=== PATIENT | female | born 1960 | race African-American/Black ===

== ENCOUNTER 2023-09-26 16:25 | Inpatient (IN) | payer OTHER, BC, MEDICAID ==
[~2023-09-26] VITALS: Ht 162.6 cm; Wt 90.7 kg
[2023-09-26 17:35] LABS: BASOPHILS % 0.7 % (0.0-2.0); EOSINOPHILS % 1.4 % (0.0-5.0); HEMATOCRIT. 38.2 % (36.0-48.0); HEMOGLOBIN. 12.8 g/dL (12.0-16.0); LYMPHOCYTES % 50.2 % (20.0-50.0); MEAN CORPUSCULAR HEMOGLOBIN 31.3 pg (28.0-32.0); MEAN CORPUSCULAR HGB CONC 33.4 g/dL (31.0-37.0); MEAN CORPUSCULAR VOLUME 93.8 fL (81.0-99.0); MEAN PLATELET VOLUME 8.6 fl (7.4-10.4); MONOCYTES % 6.8 % (2.0-8.0); NEUTROPHILS % 40.9 % (40.0-76.0); PLATELET 278 x1000/uL (130-400); RED BLOOD CELL COUNT 4.07 mill/uL (4.2-5.4); RED CELL DISTRIBUTION WIDTH 14.8 % (11.6-14.6); WHITE BLOOD COUNT 8.8 x1000/uL (4.5-11.0)
[2023-09-26 17:54] LABS: ALANINE AMINOTRANSFERASE 15 IU/L (10-49); ALBUMIN 4.8 g/dL (3.2-4.8); ASPARTATE AMINOTRANSFERASE 21 IU/L (<34); BILIRUBIN TOTAL 0.3 mg/dL (0.1-1.0); CALCIUM 9.5 mg/dL (8.7-10.4); CARBON DIOXIDE 23 mEq/L (21-32); CHLORIDE 106 mEq/L (98-107); CREATININE 1.2 mg/dL (0.6-1.0); GLUCOSE 110 mg/dL (70-105); POTASSIUM 3.3 mEq/L (3.5-5.1); PROTEIN TOTAL 7.9 g/dL (6.0-8.3); SODIUM 138 mEq/L (136-145); UREA NITROGEN BLOOD 12 mg/dL (9-23)
[2023-09-26 17:55] LABS: PROTHROMBIN TIME 10.7 sec (9.6-11.0)
[2023-09-26 18:00] LABS: TROPONIN I HIGH SENSITIVITY < 4 ng/L (3.0-34)
[2023-09-26 19:31] LABS: CLARITY URINE CLEAR (CLEAR); COLOR URINE YELLOW (YELLOW); GLUCOSE URINE NEGATIVE (NEGATIVE); KETONES URINE TRACE (NEGATIVE); LEUKOCYTE ESTERASE URINE NEGATIVE (NEGATIVE); NITRITE URINE NEGATIVE (NEGATIVE); OCCULT BLOOD URINE NEGATIVE (NEGATIVE); PROTEIN URINE NEGATIVE (NEGATIVE); SPECIFIC GRAVITY URINE 1.015 (1.005-1.030); UROBILINOGEN URINE 0.2 E.U./dL (0.2-1.0)
[2023-09-27] MEDS: CLONIDINE 0.1MG TABLET PO PRN (00:10)
[2023-09-27] MEDS ORDERED: ACETAMINOPHEN 325MG TABLET PO PRN (09:15)
[2023-09-27] MEDS ORDERED: ONDANSETRON HCL 4MG/2ML INJ IV PRN (09:15)
[2023-09-27] MEDS ORDERED: PY25 MT (09:21)
[2023-09-27] MEDS ORDERED: BACL-141 PO (09:21)
[2023-09-27] MEDS ORDERED: NAPR-1176 PO (09:21)
[2023-09-27] MEDS ORDERED: LEVO25TA7 MT (09:21)
[2023-09-27] MEDS ORDERED: CHOL125C6 (09:21)
[2023-09-27] MEDS ORDERED: CYAN250010 PO (09:21)
[2023-09-27] MEDS ORDERED: LOSA1TAB34 MT (09:21)
[2023-09-27] MEDS ORDERED: MAGN250T29 PO (09:21)
[2023-09-27 09:55] VITALS: BP 167/100; PULSE 83; RESP 20; TEMP 97.6
[2023-09-27] MEDS: AMLODIPINE 10MG TABLET PO SCH (11:04)
[2023-09-27 12:00] VITALS: BP 182/100; PULSE 83; RESP 20; TEMP 97.6
[2023-09-27] MEDS: LOSARTAN 50 MG TABLET PO SCH (12:58)
[2023-09-27] MEDS: POTASSIUM CHLORIDE 20MEQ TABLET SR PO NR (12:58)
[2023-09-27 16:00] VITALS: BP 149/96; PULSE 91; RESP 20; TEMP 97.6
[2023-09-27 20:00] VITALS: BP 148/85; PULSE 89; RESP 18; TEMP 97.6
[2023-09-27 21:58] LABS: BASOPHILS % 0.8 % (0.0-2.0); HEMATOCRIT. 37.3 % (36.0-48.0); HEMOGLOBIN. 12.4 g/dL (12.0-16.0); LYMPHOCYTES % 39.1 % (20.0-50.0); MEAN CORPUSCULAR HEMOGLOBIN 30.6 pg (28.0-32.0); MEAN CORPUSCULAR HGB CONC 33.3 g/dL (31.0-37.0); MEAN CORPUSCULAR VOLUME 91.8 fL (81.0-99.0); MONOCYTES % 8.6 % (2.0-8.0); NEUTROPHILS % 50.5 % (40.0-76.0); PLATELET 265 x1000/uL (130-400); RED BLOOD CELL COUNT 4.07 mill/uL (4.2-5.4); RED CELL DISTRIBUTION WIDTH 14.7 % (11.6-14.6); WHITE BLOOD COUNT 7.1 x1000/uL (4.5-11.0)
[2023-09-27 22:12] LABS: CALCIUM 8.8 mg/dL (8.7-10.4); CARBON DIOXIDE 27 mEq/L (21-32); CHLORIDE 106 mEq/L (98-107); GLUCOSE 106 mg/dL (70-105); POTASSIUM 4.1 mEq/L (3.5-5.1); SODIUM 139 mEq/L (136-145); UREA NITROGEN BLOOD 12 mg/dL (9-23)
[2023-09-27 22:50] LABS: *AMPHETAMINES SCREEN URINE NEGATIVE (NEGATIVE); *BARBITURATES SCREEN URINE NEGATIVE (NEGATIVE); *BENZODIAZEPINES SCREEN URINE NEGATIVE (NEGATIVE); *COCAINE SCREEN URINE NEGATIVE (NEGATIVE); CANNABINOID URINE SCREEN PRESUMPTIVE POSITIVE (NEGATIVE); ECSTASY MDMA SCREEN URINE NEGATIVE (NEGATIVE); METHADONE URINE SCREEN Neg (NEGATIVE); OPIATES URINE SCREEN NEGATIVE (NEGATIVE); PHENCYCLIDINE URINE SCREEN NEGATIVE (NEGATIVE)
[2023-09-28] VITALS: BP 146/78; PULSE 86; RESP 19; TEMP 97.5
[2023-09-28 04:00] VITALS: BP 152/68; PULSE 85; RESP 18; TEMP 97.3
[2023-09-28] MEDS ORDERED: LEVOTHYROXINE SODIUM 25MCG TABLET PO SCH (11:00)
[2023-09-28 11:59] VITALS: BP 152/78; PULSE 75; TEMP 98; O2SAT 98
== END 2023-09-28 13:59 | disposition home or self-care (01) | DRG 73 ==
LOC: ER 16:25 → 8WST 20:47 → EDBEDREQ 20:52
PROVIDERS: ADMIT Internal Medicine; ATTEND Internal Medicine
DX: G90.8 Other disorders of autonomic nervous system (principal); N17.0 Acute kidney failure with tubular necrosis; I95.9 Hypotension, unspecified; I10 Essential (primary) hypertension; Z68.34 Body mass index [BMI] 34.0-34.9, adult; E03.9 Hypothyroidism, unspecified; E66.9 Obesity, unspecified; E87.6 Hypokalemia
CPT/HCPCS: 36415; 71045; 80048; 80053; 80305; 81003; 84443; 84484; 85025; 93005; 93306; 99285